=== PATIENT | female | born 1960 | race Caucasian/White ===

== ENCOUNTER → 2018-05-07 | Outpatient (CLI) | payer OTHER ==
[~2018-05-07] MED LIST: ACETAMINOPHEN-1 EAC1 PO; ATIVAN1 MG PO; HYDROCODONE-AP1 EAC6 PO; NORCO 5-325 TA1 EACH PO; VICODIN PO; ZOFRAN ODT4 MG PO; ZOFRAN4 MG PO
--- NOTE | 2018-05-07 08:48 | EKG ---
[address] [address] ELECTROCARDIOGRAM REPORT Name: MELISSA KOWALSKI Room #: [facility] [id number] ������������������ Admission: 05/07/18 ������������������ Attend Phys: Hipolito Huber, Discharge: ������������������ Date of : 58 Report #: [id number] ����������������������������������������������������������������� [id number] THIS REPORT FOR: //name// [facility] Test Date: 2018-05-07 Test Time: 06:35:04 Pat Name: MELISSA KOWALSKI Department: Room: Gender: F Independent [employer] Maker: TOMASA : 1960 Requested By: Hipolito Huber Order Number: [id number] MD: Ramon Stephenson Measurements Intervals [place] Rate: 73 P: 55 CT: 166 QRS: 57 QRSD: 80 T: 39 QT: 377 QTc: 416 Interpretive Statements Sinus rhythm Compared to ECG 06/08/2015 09:00:59 No significant changes Electronically Signed On 05-07-2018 8:48:09 [employer] by Ramon Stephenson [email or web address] ��������������������������������������������� <ELECTRONICALLY SIGNED> ���������������������������������������� By: Ramon Stephenson MD ��������������������������������������������� 05/07/18 0848 0635 4 Ramon Stephenson MD /ALDAIR
== END | disposition home or self-care (01) ==
LOC: LITH 06:13
DX: N20.0 Calculus of kidney (principal); Z87.19 Personal history of other diseases of the digestive system; Z90.710 Acquired absence of both cervix and uterus; Z98.890 Other specified postprocedural states; Z88.8 Allergy status to other drugs, medicaments and biological substances